=== PATIENT | male | born 1995 | race Caucasian/White ===

== ENCOUNTER 2017-12-30 08:39 | Emergency (ER) | payer SELFPAY ==
[~2017-12-30] VITALS: Ht 177.8 cm; Wt 56.8 kg
[2017-12-30 08:40] VITALS: TEMP 97
[2017-12-30 09:12] LABS: BASO % 0.3 % (0.0-2.0); EOS # 0.1 (0.0-0.7); EOS % 0.9 % (0-4.0); GRAN # 5.6 (1.4-6.5); GRAN % 64.1 % (42.2-75.2); HEMATOCRIT 44.9 % (42.0-52.0); HEMOGLOBIN 15.6 g/dl (13.5-18.0); LYMPH # 2.5 (1.2-3.4); LYMPH % 28.3 % (20.0-51.0); MEAN CELL VOLUME 89 fl (80.0-100.0); MEAN CORPUSCULAR HEMOGLOBIN 31 pg (27.0-31.0); MEAN CORPUSCULAR HGB CONC 35 g/dl (33.0-37.0); MEAN PLATELET VOLUME 10.5 fl (7.4-10.4); MONO # 0.5 (0.1-0.6); MONO % 6.1 % (1.7-9.3); PLATELET COUNT 246 K/mm3 (130-400); RED BLOOD COUNT 5.07 M/mm3 (4.20-5.60)
[2017-12-30] MEDS ORDERED: WELLBUTRIN SR150 M1 PO (09:14)
[2017-12-30] MEDS ORDERED: SEROQUEL 200MG200 MG PO (09:15)
[2017-12-30 09:23] LABS: LIPASE 47 U/L (23-300)
[2017-12-30 09:30] LABS: C-REACTIVE PROTEIN < 0.5 mg/dL (0.0-0.9)
[2017-12-30 09:54] LABS: ALBUMIN 3.3 gm/dL (3.5-5.0); BILIRUBIN,TOTAL 0.3 mg/dL (0.0-1.0); CALCIUM 8.5 mg/dL (8.4-10.2); CREATININE, serum 0.95 mg/dL (0.66-1.25); POTASSIUM 4.2 mmol/L (3.4-5.0); TOTAL PROTEIN 6.1 gm/dL (6.4-8.2)
[2017-12-30] MEDS ORDERED: ZOFRAN ODT4 MG PO (10:30)
[2017-12-30 10:48] VITALS: BP 104/69; PULSE 58
== END 2017-12-30 10:49 | disposition home or self-care (01) ==
LOC: COL.ER 08:39
PROVIDERS: Emergency Medicine; Physician Assistant
DX: R10.31 Right lower quadrant pain (principal); F17.210 Nicotine dependence, cigarettes, uncomplicated; Z87.442 Personal history of urinary calculi; Z98.818 Other dental procedure status
CPT/HCPCS: J1170; J2405; J7030; Q9967

== ENCOUNTER 2019-05-30 04:20 | Emergency (ER) | payer BC ==
[~2019-05-30] VITALS: Ht 177.8 cm; Wt 59.1 kg
[~2019-05-30 04:20] MED LIST: SEROQUEL 200MG200 MG PO; WELLBUTRIN SR150 M1 PO; ZOFRAN ODT4 MG PO
[2019-05-30 04:26] VITALS: TEMP 97.1
[2019-05-30 04:50] LABS: BASO % 0.2 % (0.0-2.0); EOS # 0.1 (0.0-0.7); EOS % 0.3 % (0-4.0); GRAN # 13.6 (1.4-6.5); GRAN % 78.8 % (42.2-75.2); HEMATOCRIT 43.8 % (42.0-52.0); HEMOGLOBIN 15.3 g/dl (13.5-18.0); LYMPH # 2.2 (1.2-3.4); LYMPH % 12.8 % (20.0-51.0); MEAN CELL VOLUME 88 fl (80.0-100.0); MEAN CORPUSCULAR HEMOGLOBIN 31 pg (27.0-31.0); MEAN CORPUSCULAR HGB CONC 35 g/dl (33.0-37.0); MEAN PLATELET VOLUME 10.4 fl (7.4-10.4); MONO # 1.2 (0.1-0.6); MONO % 7.2 % (1.7-9.3); PLATELET COUNT 288 K/mm3 (130-400); REDCELL DISTRIBUTION WIDTH-CV 12.9 % (11.5-14.5)
[2019-05-30 04:59] LABS: ALBUMIN 4.6 gm/dL (3.5-5.0); BILIRUBIN,TOTAL 0.7 mg/dL (0.0-1.0); CALCIUM 9.9 mg/dL (8.4-10.2); CREATININE, serum 1.18 (0.66-1.25); POTASSIUM 4.5 mmol/L (3.4-5.0); TOTAL PROTEIN 7.6 gm/dL (6.4-8.2)
[2019-05-30 06:14] LABS: COLLECTION METHOD CLEAN CATCH
[2019-05-30 06:29] LABS: MUCOUS Present /lpf; PH 6 (5-8); SQUAMOUS EPITHELIAL None Seen /hpf; URINE APPEARANCE Hazy; URINE BACTERIA None Seen /hpf; URINE BILIRUBIN Negative (NEGATIVE); URINE BLOOD 3+ (NEGATIVE); URINE COLOR Yellow; URINE GLUCOSE Negative (NEGATIVE); URINE KETONE 1+ (NEGATIVE); URINE LEUKOCYTE ESTERASE Negative (NEGATIVE); URINE NITRATE Negative (NEGATIVE); URINE PROTEIN(semi-quant) Negative (NEGATIVE); URINE RBC >50 /hpf; URINE UROBILINOGEN Negative (NEGATIVE)
[2019-05-30] MEDS ORDERED: PERCOCET 325 MG1 TA2 PO (06:47)
[2019-05-30] MEDS ORDERED: FLOMAX 0.40.4 MG/CAP PO (06:47)
[2019-05-30] MEDS ORDERED: ZOFRAN ODT4 MG PO (06:47)
[2019-05-30 06:57] VITALS: BP 100/55; PULSE 61
== END 2019-05-30 07:04 | disposition home or self-care (01) ==
LOC: COL.ER 04:20
PROVIDERS: Emergency Medicine
DX: N20.1 Calculus of ureter (principal); Z87.442 Personal history of urinary calculi
CPT/HCPCS: J1170; J1885; J2405; J2550; J7030; Q9967

== ENCOUNTER 2019-09-28 12:19 | Emergency (ER) | payer BC ==
[~2019-09-28] VITALS: Ht 177.8 cm; Wt 59.1 kg
[~2019-09-28 12:19] MED LIST changes: +FLOMAX 0.40.4 MG/CAP PO; +PERCOCET 325 MG1 TA2 PO
[2019-09-28 12:23] VITALS: TEMP 97.5
[2019-09-28 12:51] LABS: COLLECTION METHOD CLEAN CATCH
[2019-09-28 13:10] LABS: TRICYCLIC ANTIDEPRESS URINE POSITIVE
[2019-09-28 13:12] LABS: BASO % 0.3 % (0.0-2.0); EOS # 0.1 (0.0-0.7); EOS % 0.7 % (0-4.0); GRAN # 3.6 (1.4-6.5); GRAN % 50.2 % (42.2-75.2); HEMATOCRIT 45.1 % (42.0-52.0); HEMOGLOBIN 16.1 g/dl (13.5-18.0); LYMPH # 2.9 (1.2-3.4); LYMPH % 40.8 % (20.0-51.0); MEAN CELL VOLUME 86 fl (80.0-100.0); MEAN CORPUSCULAR HEMOGLOBIN 31 pg (27.0-31.0); MEAN CORPUSCULAR HGB CONC 36 g/dl (33.0-37.0); MEAN PLATELET VOLUME 10.4 fl (7.4-10.4); MONO # 0.6 (0.1-0.6); MONO % 7.7 % (1.7-9.3); PLATELET COUNT 262 K/mm3 (130-400); RED BLOOD COUNT 5.25 M/mm3 (4.20-5.60); REDCELL DISTRIBUTION WIDTH-CV 12.6 % (11.5-14.5)
[2019-09-28 13:13] LABS: MUCOUS Present /lpf; PH 5 (5-8); SQUAMOUS EPITHELIAL None Seen /hpf; URINE APPEARANCE Clear; URINE BACTERIA None Seen /hpf; URINE BILIRUBIN Negative (NEGATIVE); URINE BLOOD 2+ (NEGATIVE); URINE COLOR Yellow; URINE GLUCOSE Negative (NEGATIVE); URINE KETONE Negative (NEGATIVE); URINE LEUKOCYTE ESTERASE Negative (NEGATIVE); URINE NITRATE Negative (NEGATIVE); URINE PROTEIN(semi-quant) 1+ (NEGATIVE); URINE UROBILINOGEN Negative (NEGATIVE)
[2019-09-28 13:23] LABS: ACETAMINOPHEN 11 ug/mL (10-30); ALANINE AMINOTRANSFERASE 14 U/L (21-72); ALBUMIN 4.9 gm/dL (3.5-5.0); ALCOHOL(ethanol),MEDICAL < 10 mg/dL; ALKALINE PHOSPHATASE 59 U/L (50-136); ANION GAP 11 mmol/L (7-16); AST,SGOT 21 U/L (15-37); BLOOD UREA NITROGEN 18 mg/dL (9-20); CALCIUM 9.6 mg/dL (8.4-10.2); CARBON DIOXIDE 21 mmol/L (22-30); CHLORIDE 108 mmol/L (98-107); CREATININE, serum 1.08 (0.66-1.25); GLUCOSE 88 mg/dL (74-106); POTASSIUM 4.1 mmol/L (3.4-5.0); SALICYLATE < 1.0 mg/dL; SODIUM 140 mmol/L (137-145); TOTAL PROTEIN 7.9 gm/dL (6.4-8.2)
[2019-09-28] MEDS ORDERED: KLONOPIN 0.5MG0.5 MG (14:15)
[2019-09-28 16:04] VITALS: BP 109/70; PULSE 59
== END 2019-09-28 16:05 | disposition home or self-care (01) ==
LOC: COL.ER 12:19
PROVIDERS: Physician Assistant
DX: F32.9 Major depressive disorder, single episode, unspecified (principal); F41.0 Panic disorder [episodic paroxysmal anxiety]; Z87.442 Personal history of urinary calculi

== ENCOUNTER 2020-08-09 09:31 | Emergency (ER) | payer BC ==
[~2020-08-09] VITALS: Ht 177.8 cm; Wt 72.7 kg
[~2020-08-09 09:31] MED LIST changes: +KLONOPIN 0.5MG0.5 MG
[2020-08-09 09:38] VITALS: TEMP 97
[2020-08-09 10:01] LABS: BASO % 0.4 % (0.0-2.0); EOS # 0.2 (0.0-0.7); EOS % 2.1 % (0-4.0); GRAN # 2.7 (1.4-6.5); HEMATOCRIT 45.4 % (42.0-52.0); LYMPH # 3.7 (1.2-3.4); LYMPH % 51.7 % (20.0-51.0); MEAN CELL VOLUME 86 fl (80.0-100.0); MEAN CORPUSCULAR HEMOGLOBIN 30 pg (27.0-31.0); MEAN CORPUSCULAR HGB CONC 35 g/dl (33.0-37.0); MEAN PLATELET VOLUME 10.1 fl (7.4-10.4); MONO # 0.5 (0.1-0.6); MONO % 7.2 % (1.7-9.3); PLATELET COUNT 302 K/mm3 (130-400); RED BLOOD COUNT 5.29 M/mm3 (4.20-5.60); REDCELL DISTRIBUTION WIDTH-CV 12.7 % (11.5-14.5)
[2020-08-09 10:08] LABS: ALBUMIN 4.5 gm/dL (3.5-5.0); BILIRUBIN,TOTAL 0.6 mg/dL (0.0-1.0); CALCIUM 9.3 mg/dL (8.4-10.2); CREATININE, serum 1.07 (0.66-1.25); TOTAL PROTEIN 7.5 gm/dL (6.4-8.2)
[2020-08-09] MEDS ORDERED: NORCO 325 MG-51 TAB PO (11:01)
[2020-08-09] MEDS ORDERED: CEPHALEXIN500 M1 PO (11:02)
[2020-08-09 11:11] VITALS: BP 114/76; PULSE 63
[2020-08-09 12:33] LABS: COLLECTION METHOD CLEAN CATCH
[2020-08-09 12:53] LABS: MUCOUS Present /lpf; PH 5 (5-8); SQUAMOUS EPITHELIAL 0-2 /hpf; URINE APPEARANCE Hazy; URINE BACTERIA None Seen /hpf; URINE BILIRUBIN Negative (NEGATIVE); URINE BLOOD 3+ (NEGATIVE); URINE CALCIUM OXALATE CRYSTAL Present /hpf; URINE COLOR Yellow; URINE GLUCOSE Negative (NEGATIVE); URINE KETONE Negative (NEGATIVE); URINE LEUKOCYTE ESTERASE Negative (NEGATIVE); URINE NITRATE Negative (NEGATIVE); URINE PROTEIN(semi-quant) 2+ (NEGATIVE); URINE RBC >50 /hpf; URINE UROBILINOGEN Negative (NEGATIVE)
== END 2020-08-09 11:14 | disposition home or self-care (01) ==
LOC: COL.ER 09:31
PROVIDERS: Emergency Medicine
DX: N13.2 Hydronephrosis with renal and ureteral calculous obstruction (principal); F41.0 Panic disorder [episodic paroxysmal anxiety]; F32.9 Major depressive disorder, single episode, unspecified; F17.290 Nicotine dependence, other tobacco product, uncomplicated; Z79.1 Long term (current) use of non-steroidal anti-inflammatories (NSAID); Z79.891 Long term (current) use of opiate analgesic
CPT/HCPCS: J1885; J2405; J3010; J7120